=== PATIENT | female | born 1995 | race Caucasian/White ===

== ENCOUNTER 2020-12-18 09:13 | Emergency (ER) | payer OTHER ==
[~2020-12-18] VITALS: Ht 165.1 cm; Wt 127.3 kg
[2020-12-18 10:06] VITALS: BP 153/90; Ht 165.1 cm; Wt 127.3 kg
[2020-12-18] MEDS ORDERED: METHOCARBAMOL500 MG PO (12:52)
[2020-12-18] MEDS ORDERED: DICLOFENAC SODI50 MG PO (12:52)
[2020-12-18] MEDS ORDERED: PREDNISONE50 MG PO (12:53)
== END 2020-12-18 13:44 | disposition home or self-care (01) ==
LOC: D.ER 09:13
DX: M51.16 Intervertebral disc disorders with radiculopathy, lumbar region (principal); G89.29 Other chronic pain; M48.56XA Collapsed vertebra, not elsewhere classified, lumbar region, initial encounter for fracture; S39.012A Strain of muscle, fascia and tendon of lower back, initial encounter; X58.XXXA Exposure to other specified factors, initial encounter

== ENCOUNTER 2021-01-09 22:46 | Emergency (ER) | payer OTHER ==
[~2021-01-09] VITALS: Ht 165.1 cm; Wt 127.3 kg
[~2021-01-09 22:46] MED LIST: DICLOFENAC SODI50 MG PO; METHOCARBAMOL500 MG PO; PREDNISONE50 MG PO
[2021-01-09 23:05] VITALS: Ht 165.1 cm; Wt 127.3 kg
[2021-01-09] MEDS ORDERED: BACTRIM DS TAB1 EAC1 PO (23:09)
[2021-01-09] MEDS ORDERED: LOTRIMIN ULTRA12 GM TOPICAL (23:09)
[2021-01-09 23:37] VITALS: BP 139/91
== END 2021-01-09 23:35 | disposition home or self-care (01) ==
LOC: D.ER 22:46
DX: L02.211 Cutaneous abscess of abdominal wall (principal)